=== PATIENT | female | born 1990 | race Caucasian/White ===

== ENCOUNTER 2017-02-01 11:09 | Emergency (ER) | payer OTHER | END 2017-02-01 11:15 | disposition left against medical advice (07) | LOC: CED 11:09 | DX: Z53.21 Procedure and treatment not carried out due to patient leaving prior to being seen by health care provider (principal) ==

== ENCOUNTER 2017-03-17 19:10 | Emergency (ER) | payer OTHER ==
[2017-03-17 19:20] VITALS: RESP 18; TEMP 100.2
[2017-03-17] MEDS ORDERED: ONDANSETRON 4MG PREPACK#2 BTL TAKEHOME ONE (20:41)
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
[2017-03-17 20:55] VITALS: BP 158/113; PULSE 91; O2SAT 96
== END 2017-03-17 20:53 | disposition home or self-care (01) ==
LOC: CED 19:10
DX: S06.0X0A Concussion without loss of consciousness, initial encounter (principal); B34.9 Viral infection, unspecified; W22.8XXA Striking against or struck by other objects, initial encounter
CPT/HCPCS: 70450-PO